=== PATIENT | female | born 1980 | race Two or more races ===

== ENCOUNTER → 2024-05-11 | Outpatient (CLI) | payer MEDICAID, SELFPAY ==
--- NOTE | 2024-05-11 10:00 | XR_ITS ---
EXAMINATION: XR esophogram standard HISTORY: 43-year-old female complaining of 2 years of upper esophageal dysmotility with solid foods. COMPARISON: 10/08/2022, esophagrams TECHNIQUE: Initial production quality manager radiographs of the chest and upper neck were followed by multiple fluoroscopic images obtained during and after the uneventful administration of oral thin barium contrast. FLUOROSCOPY TIME: 2.1 min AIR KERMA: 238.99 mGy FINDINGS: Cardiac silhouette normal in size. No pneumothorax. No pleural effusion. No consolidation. Unchanged scattered 1 to 2 mm calcified granulomas, likely sequela of old granulomatous disease. No prevertebral soft tissue swelling. Straightening of the normal cervical lordotic curvature which may be positional in the basis of muscle spasm. Normal appearance of the vallecula and piriform sinuses. No findings for aspiration or penetration. No diverticulum identified. Normal primary and secondary contractions of the esophagus. No tertiary contractions identified. No intrinsic or extrinsic mass effect. No stricture identified. Normal rapid passage of contrast into the gastric lumen. Small hiatal hernia. No inducible or spontaneous gastroesophageal reflux. Duodenum crosses midline with retroperitoneal course of the second through fourth portions. Ligament of Treitz is in standard position. IMPRESSION: 1. Small hiatal hernia. 2. No intrinsic or extrinsic mass effect.
== END | disposition home or self-care (01) ==
LOC: SDIM 09:25
PROVIDERS: PCP Physician Assistant Medical; Referring Provider Physician Assistant Medical; Visit Provider Physician Assistant Medical
DX: K44.9 Diaphragmatic hernia without obstruction or gangrene (principal)
CPT/HCPCS: 74220; Z7610

== ENCOUNTER 2024-09-22 10:15 | Day surgery (SDC) | payer MEDICAID, SELFPAY ==
[2024-09-22] VITALS (10 sets, daily range): BP systolic 107–153; BP diastolic 79–108; PULSE 76–98; RESP 14–23; TEMP 36.4–36.6; O2SAT 92–99; BMI 31.3
[2024-09-22] MEDS: RINGERS LACTATED 1000 ML 1,000 ML 125 ML IV (12:09)
[2024-09-22] MEDS: MIDAZOLAM INJ 1 MG/ML VIAL 2 ML (ASD USE ONLY) 2 MG IVP (12:10)
[2024-09-22] MEDS: fentaNYL CIT INJ 50 mCg/ML AMP 2ML (ASD USE ONLY) IVP (12:14)
== END 2024-09-22 13:15 | disposition home or self-care (01) ==
PROVIDERS: PCP Physician Assistant Medical; Referring Provider Internal Medicine Gastroenterology; Visit Provider Internal Medicine Gastroenterology
PROC: (CPT 43239; principal; 2024-09-22 10:30)
DX: K22.2 Esophageal obstruction (principal); K21.00 Gastro-esophageal reflux disease with esophagitis, without bleeding; K22.10 Ulcer of esophagus without bleeding; Q39.9 Congenital malformation of esophagus, unspecified; K44.9 Diaphragmatic hernia without obstruction or gangrene; K29.70 Gastritis, unspecified, without bleeding; K22.81 Esophageal polyp; I10 Essential (primary) hypertension; K31.89 Other diseases of stomach and duodenum
CPT/HCPCS: 43249; 43239; 81025; C1726; J1200; J2250; J2470; J3010; J7120